=== PATIENT | male | born 1990 | race Caucasian/White ===

== ENCOUNTER 2022-11-20 19:35 | Emergency (ER) | payer OTHER, SELFPAY ==
[2022-11-20 19:46] VITALS: BP 115/71; PULSE 79; RESP 16; TEMP 36.5; O2SAT 97; BMI 27.2
--- NOTE | 2022-11-20 20:43 | DI.RAD.S_ITS ---
PROCEDURE: XR THORACIC SPINE 3V INDICATIONS: midline pain after lifting, felt pop TECHNIQUE: 3 views of the thoracic spine were acquired. COMPARISON: None. FINDINGS: Bones: No fractures or dislocations. No suspicious bony lesions. 12 pairs of ribs are noted, and appear intact where visualized. Soft tissues: No paravertebral stripe thickening. IMPRESSION: 1. No fracture or subluxation. Dictated by: Glenn Hay M.D. on 11/20/2022 at 21:29 Approved by: Glenn Hay M.D. on 11/20/2022 at 21:30
--- NOTE | 2022-11-20 20:44 | ED.BACK ---
HPI - Back Pain/Injury General Chief Complaint: Back Pain/Injury Stated Complaint: Back pain from lifting/strain Time Seen by Provider: 11/20/22 20:21 Source: patient History of Present Illness HPI Narrative: 32-year-old male nonsmoker with noncontributory medical history presents with significant other and a chief complaint of a sudden onset sharp and stabbing midline back pain for the past few days after bending over and lifting a heavy object. He states that his pain is worse when he moves and improves with rest. He denies any radiation of the pain and has no neurologic symptoms such as numbness, tingling or weakness. He denies fever or chills and does not use blood thinners. He does not have any complaint of footdrop. He has taken nothing to help with the pain. He denies any loss of control of bowel or bladder. Related Data Previous Rx's Medication Instructions Recorded ketorolac 10 mg tablet 10 mg PO Q6H PRN pain #14 tabs 11/20/22 Allergies Allergy/AdvReac Type Severity Reaction Status Date / Time No Known Drug Allergies Allergy Verified 11/20/22 19:49 Review of Systems Review of Systems Narrative: GENERAL: Denies chills, fatigue, malaise, fever, sweats. HEENT: Denies sinus pain, ear pain, sore throat, difficulty swallowing, dizziness. RESPIRATORY: Denies dyspnea, cough, wheezing, hemoptysis, sputum. CARDIOVASCULAR: Denies chest pain, palpitations, orthopnea, edema, GASTROINTESTINAL: Denies nausea, vomiting, abdominal pain, diarrhea, constipation, melena. : Denies dysuria, frequency, incontinence, hematuria, urinary retention. MUSCULOSKELETAL: See HPI SKIN: Denies rash, skin lesions, or other NEUROLOGIC: See HPI PSYCHIATRIC: No concerning psychosocial issues. 12 point review of systems is negative except for those stated above Patient History Social History Smoking Status: Never smoker Smoking Status: Never smoker Substance Use Type: does not use Exam Narrative Exam Narrative: GENERAL: [32] year old patient appears stated age. Well-developed patient, in mild distress. HEAD: Atraumatic. Normocephalic. EYES: Pupils equal round and reactive. Extraocular motions intact. No scleral icterus. No injection or drainage. ENT: Nose without bleeding, purulent drainage. Throat without erythema, tonsillar hypertrophy or exudate. Airway patent. NECK: Trachea midline. Non tender CARDIOVASCULAR: Regular rate and rhythm without murmurs, gallops, or rubs. RESPIRATORY: Clear to auscultation. Breath sounds equal bilaterally. No wheezes, rales, or rhonchi. GASTROINTESTINAL: Abdomen soft, non-tender, nondistended. EXTREMITIES: No edema or joint tenderness. BACK: Subtle midthoracic midline bony pain without crepitance or step-offs, no overlying erythema, warmth or induration, no fluctuance. No saddle anesthesia. No lower extremity numbness, tingling or weakness. NEURO: AOx3. SKIN: No rash or erythema of visible areas Initial Vital Signs Initial Vital Signs: Vital Signs Temperature 97.7 F 11/20/22 19:46 Pulse Rate 79 11/20/22 19:46 Respiratory Rate 16 11/20/22 19:46 Blood Pressure 115/71 11/20/22 19:46 Pulse Oximetry 97 11/20/22 19:46 Oxygen Delivery Method 11/20/22 19:46 Course Orders Ordered: ED Orders 11/20/22 20:43 XR thoracic spine 3V Stat Discontinued Medications Ibuprofen (Ibuprofen 400 Mg Tablet) 800 mg PO NOW ONE Stop: 11/20/22 20:44 Last Admin: 11/20/22 20:50 Dose: 800 mg Documented By: AP Vital Signs Vital signs: Vital Signs - 8 hr 11/20/22 19:46 11/20/22 21:50 Temperature 97.7 F Pulse Rate 79 72 Respiratory Rate 16 18 Blood Pressure 115/71 120/70 Pulse Oximetry 97 99 Oxygen Delivery Method Room Air Room Air MDM - Back Pain/Injury Imaging Data T Spine Xray: Radiologist's Impression: Close Thoracic Spine X-Ray (Signed) Glenn Hay - 11/20/22 Launch?[address] [address] XRay Report Signed Patient: Silvia Levy MR#: [id number] : 1990 Acct:[id number] Age/Sex: 32 / M Date of Service: 11/20/22 Loc: ED Accession Number: [id number] ?? Procedure: XR thoracic spine 3V Ordering Provider: Edmar Tabor D.O. PROCEDURE:? XR THORACIC SPINE 3V ? INDICATIONS:? midline pain after lifting, felt pop ? TECHNIQUE:? 3 views of the thoracic spine were acquired.? ? COMPARISON:? None. ? FINDINGS:? ? Bones:? No fractures or dislocations.? No suspicious bony lesions.? 12 pairs of ribs are noted, and appear intact where visualized.? ? Soft tissues:? No paravertebral stripe thickening.? ? ? IMPRESSION:? ? 1. No fracture or subluxation. ? ? Dictated by: Glenn Hay M.D. on 11/20/2022 at 21:29 ? ? Approved by: Glenn Hay M.D. on 11/20/2022 at 21:30 ? MDM Narrative Medical decision making narrative: [32M with low risk back pain] Multiple etiologies for patient's symptoms considered including, but not limited to: [ muscle spasm, fracture, inflammation, epidural abscess vs. other] Imaging reviewed: No fracture or acute process Patient's symptoms improved over duration of stay with above-stated therapies. Findings and discharge diagnosis discussed with patient/family followed by verbalization of understanding Return precautions discussed with patient/family whom verbalize understanding of diagnosis and plan Discharge Plan Departure Patient Disposition: Home Clinical Impression: Back pain Instructions: DI for Back Strain or Sprain Activity Restrictions/Additional Instructions: *You have been diagnosed with [back pain. Your history and physical exam are very reassuring and xray demonstrates no obvious abnormality.] *What to do: *Please continue to take your regular medications as directed. [ x] New medication prescriptions sent to your pharmacy: [ ] [ ] New medication written as a paper prescription [ ] No new medications given *Please follow up with your primary care provider in 2-3 days, call for an appointment. Let them know you were seen in the Emergency Department and that we ask that you be seen in follow up. We will electronically transmit a record of today's note if your PCP is in our system *If you do not have a primary care provider please contact the [facility] Resource line at [phone]. They will ask some questions about your medical history and help get you set up with a doctor in the community. *Return to Emergency Department if you should have any new, worsening or concerning symptoms, such as [fever greater than 101 F, shaking chills, worsening pain, persistent vomiting or other bothersome symptoms] Prescriptions: New ketorolac 10 mg tablet 10 mg PO Q6H PRN (Reason: pain) Qty: 14 0RF Referrals: ProviderKatherine [Primary Care Provider] - Stand Alone Forms: Patient Portal/API
[2022-11-20] MEDS: IBUPROFEN 400 MG TABLET 800 MG PO (20:50)
[2022-11-20 21:50] VITALS: BP 120/70; PULSE 72; RESP 18; O2SAT 99
== END 2022-11-20 21:51 | disposition home or self-care (01) ==
PROVIDERS: Emergency Provider Emergency Medicine
DX: M54.9 Dorsalgia, unspecified (principal)
CPT/HCPCS: 72072; 99283

== ENCOUNTER 2024-02-16 21:38 | Emergency (ER) | payer OTHER, SELFPAY ==
[2024-02-16 21:40] VITALS: BP 125/71; PULSE 78; RESP 16; TEMP 36.9; O2SAT 98; BMI 28.8
--- NOTE | 2024-02-16 22:04 | ED_ITS ---
HPI - Back Pain/Injury General Chief Complaint: Back Pain/Injury Stated Complaint: back pain, vomiting Time Seen by Provider: 02/16/24 21:39 Source: patient History of Present Illness HPI Narrative: 33-year-old male presents for general evaluation. He reports vomiting earlier today and since then has had body aches, lumbar back pain, and states that his skin feels painful. 500mg tylenol taken at home. Denies fevers, chills, recent illness Related Data Previous Rx's Medication Instructions Recorded ketorolac 10 mg tablet 10 mg PO Q6H PRN pain #14 tabs 11/20/22 Allergies Allergy/AdvReac Type Severity Reaction Status Date / Time No Known Drug Allergies Allergy Verified 02/16/24 21:40 Review of Systems Review of Systems Narrative: see HPI Patient History Social History Smoking Status: Never smoker Smoking Status: Never smoker Substance Use Type: does not use Exam Initial Vital Signs Initial Vital Signs: Vital Signs Temperature 98.4 F 02/16/24 21:40 Pulse Rate 78 02/16/24 21:40 Respiratory Rate 16 02/16/24 21:40 Blood Pressure 125/71 02/16/24 21:40 Pulse Oximetry 98 02/16/24 21:40 Oxygen Delivery Method Room Air 02/16/24 21:40 Const: Awake, alert, no acute distress, nontoxic appearing Cardiac: regular rate, regular rhythm RESP: unlabored, clear bilaterally, no wheezing GI: Soft, nontender, nondistended, no rebound, no guarding MSK: Atraumatic, full range of motion, pulses equal Skin: Warm, Dry, intact, no rashes Neuro: AO x3, CN II-XII grossly intact, moves all extremities Course Orders Ordered: ED Orders 02/16/24 22:10 UA Complete [Urinalysis and Microscopic] Stat 02/16/24 22:19 CBC Auto Diff [Complete Blood Count AUTO DIFF] Stat CMP [Comprehensive Metabolic Panel] Stat Covid-19 + FLU A/B + RSV - PCR Stat Discontinued Medications Ketorolac Tromethamine (Ketorolac 30 Mg/Ml Vial) 30 mg IM NOW ONE Stop: 02/16/24 22:04 Last Admin: 02/16/24 22:10 Dose: 30 mg Documented By: LOKESH Vital Signs Vital signs: Vital Signs - 8 hr 04/07/24 21:40 02/16/24 23:35 Temperature 98.4 F Pulse Rate 78 70 Respiratory Rate 16 24 Blood Pressure 125/71 118/71 Pulse Oximetry 98 95 Oxygen Delivery Method Room Air Room Air MDM - Back Pain/Injury Lab Data 02/16/24 22:19 02/16/24 22:19 Labs: Lab Results 02/16/24 02/16/24 Range/Units 22:10 22:19 WBC 6.6 (4.5-11.0) X10^3/uL RBC 4.80 (4.5-5.9) X10^6/uL Hgb 14.7 (13.5-17.5) g/dL Hct 43.7 (41-53) % MCV 91.1 (80-100) fL MCH 30.6 (26-34) PG MCHC 33.6 (30-36) % RDW 13.1 (11.6-14.8) % Plt Count 214 (150-400) X10^3/uL Neut % (Auto) 58.5 (50-75) % Lymph % (Auto) 31.7 (25-40) % [place] % (Auto) 7.8 (3-14) % Eos % (Auto) 1.4 L (2-4) % Baso % (Auto) 0.6 (0-2) % Neut # (Auto) 3900 (8491-0146) /uL Lymph # (Auto) 2100 (2889-2198) /uL [place] # (Auto) 500 (0-900) /uL Eos # (Auto) 100 (0-450) /uL Baso # (Auto) 0 (0-100) /uL Sodium 139 (137-145) mmol/L Potassium 3.9 (3.4-5.1) mmol/L Chloride 105 (98-107) mmol/L Carbon Dioxide 29 (22-32) mmol/L BUN 15 (9-20) mg/dL Creatinine 0.77 (0.66-1.25) mg/dL Estimated GFR > 60 (>60) mL/min BUN/Creatinine Ratio 19.5 (6-22) Glucose 81 (70-100) mg/dL Calcium 9.3 (8.4-10.2) mg/dL Total Bilirubin 0.6 (0.2-1.3) mg/dL AST 29 (17-59) IU/L ALT 20 (<50) IU/L Alkaline Phosphatase 59 (38-126) U/L Total Protein 8.0 (6.3-8.2) g/dL Albumin 4.5 (3.5-5.0) g/dL Globulin 3.5 (1.7-4.1) g/dL Albumin/Globulin Ratio 1.3 (1.0-2.8) Urine Color Yellow Urine Appearance Clear Urine pH 6.0 (4.5-8.0) Ur Specific [place] >=1.030 H (1.000-1.035) Urine Protein Negative (Negative) Urine Glucose (UA) Negative (Negative) g/dL Urine Ketones Negative (NEGATIVE) Urine Occult Blood Negative (Negative) Urine Nitrate Negative (Negative) Urine Bilirubin Negative (NEGATIVE) Urine Urobilinogen 0.2 (0.2) E.U./dL Ur Leukocyte Esterase Negative (NEGATIVE) Urine RBC None seen (0-5/HPF) Urine WBC None seen (0-5/HPF) Ur Squamous Epith Cells 0-1 /hpf (0-5/HPF) Urine Bacteria None seen (None) Ur Culture Indicated? Cult not indicated Vol Urine Centrifuged 10ml (spun) SARS-CoV-2 (PCR) Negative (Negative) Influenza A (RT-PCR) Flu a negative (NEGATIVE) Influenza B (RT-PCR) Flu b negative (NEGATIVE) RSV (PCR) Negative (Negative) MDM Narrative Medical decision making narrative: 33-year-old male presenting for general evaluation. Isolated episode of vomiting several hours ago, has generalized lumbar pain and the sensation that his skin is tight. Exam is unremarkable, laboratory work unremarkable. No explanation for patient's symptoms. Patient advised to take Tylenol and Motrin as needed and to follow up with his primary care physician. Discharge Plan Departure Patient Disposition: Home Clinical Impression: Lumbar back pain Instructions: DI for Low Back Pain Activity Restrictions/Additional Instructions: Your laboratory work and viral swab today were normal. I do not know the cause of your symptoms. Take Tylenol and Motrin as needed for pain. Follow a light diet for the next 2-3 days to prevent upsetting your stomach. Prescriptions: No Action ketorolac 10 mg tablet 10 mg PO Q6H PRN (Reason: pain) Qty: 14 0RF Referrals: Provider,Katherine GUZMAN [Primary Care Provider] - Stand Alone Forms: Patient Portal/API
[2024-02-16] MEDS: KETOROLAC 30 MG/ML VIAL IM (22:10)
[2024-02-16 22:19] LABS: Appearance Urine UA CLEAR; Bilirubin Urine UA NEGATIVE (NEGATIVE); Color Urine UA YELLOW; Glucose Urine UA NEGATIVE (Negative); Ketones Urine UA NEGATIVE (NEGATIVE); Leukocyte Esterase Urine UA NEGATIVE (NEGATIVE); Nitrite Urine UA NEGATIVE (Negative); Occult Blood Urine UA NEGATIVE (Negative); Protein Urine UA NEGATIVE (Negative); Specific Gravity Urine UA >=1.030 (1.000-1.035); Urobilinogen Urine UA 0.2 E.U./dL (0.2)
[2024-02-16 22:30] LABS: Add Manual Diff / Slide Review NO; Basophils Absolute Auto 0 /uL (0-100); Basophils Percent Auto 0.6 % (0-2); Eosinophils Absolute Auto 100 /uL (0-450); Eosinophils Percent Auto 1.4 % (2-4); Hematocrit 43.7 % (41-53); Hemoglobin 14.7 g/dL (13.5-17.5); Lymphocytes Absolute Auto 2100 /uL (1100-4500); Lymphocytes Percent Auto 31.7 % (25-40); Mean Corpuscular HGB Conc 33.6 % (30-36); Mean Corpuscular Hemoglobin 30.6 PG (26-34); Mean Corpuscular Volume 91.1 fL (80-100); Monocytes Absolute Auto 500 /uL (0-900); Monocytes Percent Auto 7.8 % (3-14); Neutrophils Absolute Auto 3900 /uL (1500-7000); Neutrophils Percent Auto 58.5 % (50-75); Platelet Count 214 X10^3/uL (150-400); Red Cell Distribution Width 13.1 % (11.6-14.8); White Blood Cell Count 6.6 X10^3/uL (4.5-11.0)
[2024-02-16 22:31] LABS: Bacteria Urine None Seen; Culture Indicated Urine Cult Not Indicated; RBC Urine None Seen (0-5/HPF); Squamous Epithelial Cell Urine 0-1 /HPF (0-5/HPF); Urine Volume 10mL (spun); WBC Urine None Seen (0-5/HPF)
[2024-02-16 22:40] LABS: Alanine Aminotransferase 20 IU/L (<50); Albumin 4.5 g/dL (3.5-5.0); Albumin Globulin Ratio 1.3 (1.0-2.8); Alkaline Phosphatase 59 U/L (38-126); Aspartate Aminotransferase 29 IU/L (17-59); BUN Creatinine Ratio 19.5 (6-22); Bilirubin Total 0.6 mg/dL (0.2-1.3); Blood Urea Nitrogen 15 mg/dL (9-20); Calcium 9.3 mg/dL (8.4-10.2); Carbon Dioxide 29 mmol/L (22-32); Chloride 105 mmol/L (98-107); Estimated Glomerular Filt Rate > 60 mL/min (>60); Globulin 3.5 g/dL (1.7-4.1); Glucose 81 mg/dL (70-100); HEMOLYSIS 25 (0-50); Potassium 3.9 mmol/L (3.4-5.1); Sodium 139 mmol/L (137-145)
[2024-02-16 23:12] LABS: Influenza A - CEPHEID Flu A NEGATIVE (NEGATIVE); Influenza B - CEPHEID Flu B NEGATIVE (NEGATIVE); Respiratory Syncytial Virus Negative (Negative)
[2024-02-16 23:15] LABS: COVID-19 CEPHEID 4-PLEX PCR Negative (Negative)
[2024-02-16 23:35] VITALS: BP 118/71; PULSE 70; RESP 24; O2SAT 95
== END 2024-02-16 23:36 | disposition home or self-care (01) ==
PROVIDERS: Emergency Provider Emergency Medicine
DX: M54.50 Low back pain, unspecified (principal); R11.10 Vomiting, unspecified; Z20.822 Contact with and (suspected) exposure to COVID-19
CPT/HCPCS: 0241U; 36415; 80053; 81001; 85025; 96372; 99283; J1885

== ENCOUNTER 2024-09-30 10:21 | Emergency (ER) | payer OTHER, SELFPAY ==
[2024-09-30 10:28] VITALS: BP 135/76; PULSE 82; RESP 18; TEMP 36.5; O2SAT 99; BMI 28.8
--- NOTE | 2024-09-30 11:58 | ED.HA ---
HPI - Headache <Cinthya Cheung PA-C - Last Filed: 09/30/24 13:36> General Chief Complaint: Headache Stated Complaint: Headaches Time Seen by Provider: 09/30/24 11:58 Mode of arrival: Ambulatory History of Present Illness HPI Narrative: Mr. Levy is a pleasant 34-year-old male who was otherwise healthy that presents to the emergency room for headache. Patient reports he 1st developed a left-sided headache 1 month ago that only was present at night. Patient reports that he would wake up around 2:00 a.m. with a headache behind his left eye, would take Tylenol, and headache would resolve when he would go back to sleep. States that this happened almost every day for a month however about 1 week ago it stopped. Three days ago however, the patient developed a bilateral frontal headache that has been constant. Patient denies any sudden onset of the headache or trauma to the head. Describes headache as dull but constant pressure. Denies visual disturbance, dizziness, fevers, chills, neck pain. Prior to 1 month ago, the patient never developed headaches. The headaches do resolve with Tylenol however they returned about 2 hours later. He last took Tylenol at 6:00 a.m. and the headache returned at 8:00 a.m.. Related Data Previous Rx's Medication Instructions Recorded ketorolac 10 mg tablet 10 mg PO Q6H PRN pain #14 tabs 11/20/22 Allergies Allergy/AdvReac Type Severity Reaction Status Date / Time No Known Drug Allergies Allergy Verified 02/16/24 21:40 Review of Systems <Cinthya Cheung PA-C - Last Filed: 09/30/24 13:36> Review of Systems ROS Unobtainable: All systems reviewed & are unremarkable except as noted in HPI and below Patient History <Cinthya Cheung PA-C - Last Filed: 09/30/24 13:36> Social History Smoking Status: Never smoker Smoking Status: Never smoker alcohol intake frequency: 0-2 drinks per day Substance Use Type: does not use Exam <Cinthya Cheung PA-C - Last Filed: 09/30/24 13:36> Narrative Exam Narrative: GENERAL: 34 year old patient appears stated age. Well-developed patient, in no acute distress. HEAD: Atraumatic. Normocephalic. EYES: PERRL. Extraocular motions intact. No scleral icterus. No injection or drainage. ENT: Nose without bleeding, purulent drainage. Ears without hemotympanum. Throat without erythema, tonsillar hypertrophy or exudate. Airway patent. NECK: Trachea midline. Cervical ROM intact. CARDIOVASCULAR: Regular rate and rhythm. RESPIRATORY: ?Nonlabored respirations. ?Speaking in clear, full sentences. ?Clear to auscultation. Breath sounds equal bilaterally. No wheezes, rales, or rhonchi. ? GASTROINTESTINAL: Abdomen soft, non-tender, nondistended. EXTREMITIES: No edema or joint tenderness. BACK: Nontender without deformity or crepitance. No flank tenderness. NEURO: AOx3. ?Clear speech. ?Moves all 4 extremities appropriately. Steady gait. No facial asymmetry. FNF normal. SKIN: No rash or erythema of visible areas Initial Vital Signs Initial Vital Signs: Vital Signs Temperature 97.7 F 09/30/24 10:28 Pulse Rate 82 09/30/24 10:28 Respiratory Rate 18 09/30/24 10:28 Blood Pressure 135/76 09/30/24 10:28 Pulse Oximetry 99 09/30/24 10:28 Oxygen Delivery Method Room Air 09/30/24 10:28 <Elmo Esparza MD - Last Filed: 10/04/24 14:56> Initial Vital Signs Initial Vital Signs: Vital Signs Temperature 97.7 F 09/30/24 10:28 Pulse Rate 82 09/30/24 10:28 Respiratory Rate 18 09/30/24 10:28 Blood Pressure 135/76 09/30/24 10:28 Pulse Oximetry 99 09/30/24 10:28 Oxygen Delivery Method Room Air 09/30/24 10:28 Course <Cinthya Cheung PA-C - Last Filed: 09/30/24 13:36> Orders Ordered: Discontinued Medications Acetaminophen (Acetaminophen 325 Mg Tablet) 975 mg PO NOW ONE Stop: 09/30/24 12:09 Last Admin: 09/30/24 12:13 Dose: 975 mg Documented By: SCOT Ibuprofen (Ibuprofen 400 Mg Tablet) 200 mg PO NOW ONE Stop: 09/30/24 12:09 Last Admin: 09/30/24 12:13 Dose: 200 mg Documented By: SCOT Ibuprofen (Ibuprofen 400 Mg Tablet) 400 mg PO NOW ONE Stop: 09/30/24 12:09 Last Admin: 09/30/24 12:14 Dose: 400 mg Documented By: MPO Vital Signs Vital signs: Vital Signs - 8 hr 09/30/24 10:28 Temperature 97.7 F Pulse Rate 82 Respiratory Rate 18 Blood Pressure 135/76 Pulse Oximetry 99 Oxygen Delivery Method Room Air <Elmo Esparza MD - Last Filed: 10/04/24 14:56> Orders Ordered: Discontinued Medications Acetaminophen (Acetaminophen 325 Mg Tablet) 975 mg PO NOW ONE Stop: 09/30/24 12:09 Last Admin: 09/30/24 12:13 Dose: 975 mg Documented By: MPO Ibuprofen (Ibuprofen 400 Mg Tablet) 200 mg PO NOW ONE Stop: 09/30/24 12:09 Last Admin: 09/30/24 12:13 Dose: 200 mg Documented By: MPO Ibuprofen (Ibuprofen 400 Mg Tablet) 400 mg PO NOW ONE Stop: 09/30/24 12:09 Last Admin: 09/30/24 12:14 Dose: 400 mg Documented By: MPO Vital Signs Vital signs: Vital Signs - 8 hr 09/30/24 10:28 Temperature 97.7 F Pulse Rate 82 Respiratory Rate 18 Blood Pressure 135/76 Pulse Oximetry 99 Oxygen Delivery Method Room Air MDM - Headache <Cinthya Cheung PA-C - Last Filed: 09/30/24 13:36> Imaging Data CT scan - head: Radiologist's Impression: PROCEDURE: CT HEAD/BRAIN WO CON INDICATIONS: L sided RAMIREZ x 1 month, BL frontal RAMIREZ x 3 days, no RAMIREZ hx TECHNIQUE: Noncontrast 4.5 mm thick angled axial sections acquired from the foramen magnum to the vertex, with coronal and sagittal reformats. For radiation dose reduction, the following was used: automated exposure control, adjustment of mA and/or kV according to patient size. COMPARISON: None. FINDINGS: Image quality: Diagnostic. CSF spaces: Basal cisterns are patent. No extra-axial fluid collections. Ventricles are normal in size and shape. Brain: No midline shift. No intracranial masses or hemorrhage. [place]-white matter interface is normal. Skull and face: Calvarium and visualized facial bones are intact, without suspicious lesions. Sinuses: Visualized sinuses and mastoids are clear. IMPRESSION: No acute intracranial pathology. 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 At this time the patient has a bilateral frontal headache. No sudden onset, no trauma, no visual disturbance or dizziness, no neck pain, no fevers. Differential diagnosis includes but is not limited to tension headache, cluster headache, migraine headache, intracranial mass, sinusitis, sleep apnea, etc. On exam patient is in no acute distress, nontoxic-appearing, all vital signs within normal limits. No focal neurologic deficits. After shared decision-making with the patient, we will proceed with head CT given patient has no history of headaches prior to the last month. We will treat pain with Tylenol and ibuprofen. Head CT negative. Patient is requesting discharge. He has had improvement with his headache after Tylenol and ibuprofen. Recommended rest, decrease screen time, increase hydration, ibuprofen/Tylenol if needed for pain and follow up with his PCP tomorrow which is already scheduled. Discussed strict ER return precautions and signs and symptoms to look out for. All questions answered, patient stable for discharge. Discharge Plan Departure Patient Disposition: Home Clinical Impression: Headache Instructions: DI for Headache Activity Restrictions/Additional Instructions: You may take 1000 mg of Tylenol every 8 hours and ibuprofen 600 mg every 6 hours if needed for headache. Please rest, decrease screen time, increase hydration, and follow up with Medical tomorrow as discussed. Please follow up with your primary care doctor within the next 2-3 days. Return to the emergency department for any new or worsening symptoms, or any other concerns. Thank you for letting me participate in your care, Cinthya Cheung PA-C Prescriptions: No Action ketorolac 10 mg tablet 10 mg PO Q6H PRN (Reason: pain) Qty: 14 0RF Referrals: Provider,Katherine GUZMAN [Primary Care Provider] - Stand Alone Forms: Patient Portal/API/Survey, Work Release Note ED Sign-out <Elmo Esparza MD - Last Filed: 10/04/24 14:56> Cosign ED Attending Cosignature Attestation: I was immediately available in the department for consultation. ?This documentation has been reviewed and I agree with assessment and plan. Supervised by Elmo Esparza MD
--- NOTE | 2024-09-30 12:08 | DI.CT.S_ITS ---
PROCEDURE: CT HEAD/BRAIN WO CON INDICATIONS: L sided RAMIREZ x 1 month, BL frontal RAMIREZ x 3 days, no RAMIREZ hx TECHNIQUE: Noncontrast 4.5 mm thick angled axial sections acquired from the foramen magnum to the vertex, with coronal and sagittal reformats. For radiation dose reduction, the following was used: automated exposure control, adjustment of mA and/or kV according to patient size. COMPARISON: None. FINDINGS: Image quality: Diagnostic. CSF spaces: Basal cisterns are patent. No extra-axial fluid collections. Ventricles are normal in size and shape. Brain: No midline shift. No intracranial masses or hemorrhage. [place]-white matter interface is normal. Skull and face: Calvarium and visualized facial bones are intact, without suspicious lesions. Sinuses: Visualized sinuses and mastoids are clear. IMPRESSION: No acute intracranial pathology. Dictated by: Angel Tinsley M.D. on 09/30/2024 at 12:50 Approved by: Angel Tinsley M.D. on 09/30/2024 at 12:51
[2024-09-30] MEDS: IBUPROFEN 400 MG TABLET 200 MG PO (12:13)
[2024-09-30] MEDS: ACETAMINOPHEN 325 MG TABLET 975 MG PO (12:13)
[2024-09-30] MEDS: IBUPROFEN 400 MG TABLET PO (12:14)
[2024-09-30 13:46] VITALS: BP 140/72; PULSE 81; RESP 20; O2SAT 99
== END 2024-09-30 13:47 | disposition home or self-care (01) ==
PROVIDERS: Emergency Provider Physician Assistant
DX: R51.9 Headache, unspecified (principal)
CPT/HCPCS: 70450; 99283; 99284

== ENCOUNTER 2024-10-01 22:07 | Emergency (ER) | payer OTHER, SELFPAY ==
[2024-10-01 22:13] VITALS: BP 136/77; PULSE 92; RESP 16; TEMP 36.7; O2SAT 96; BMI 28.0
--- NOTE | 2024-10-01 22:23 | ED.HA ---
HPI - Headache General Chief Complaint: Headache Stated Complaint: headaches and bodyaches Time Seen by Provider: 10/01/24 22:12 Mode of arrival: Ambulatory History of Present Illness HPI Narrative: 34-year-old male presents for 4 days of persistent headache. Patient seen yesterday for same. He underwent negative CT imaging at that time. Per ED note patient's headache was controlled with Tylenol and ibuprofen and he was discharged with supportive care measures. Patient states that the headache returned and it was not relieved with the ibuprofen that he took prior to arrival. Also reporting generalized body aches. Related Data Previous Rx's Medication Instructions Recorded ketorolac 10 mg tablet 10 mg PO Q6H PRN pain #14 tabs 11/20/22 Allergies Allergy/AdvReac Type Severity Reaction Status Date / Time No Known Drug Allergies Allergy Verified 02/16/24 21:40 Patient History Social History Smoking Status: Never smoker Smoking Status: Never smoker alcohol intake frequency: 0-2 drinks per day Substance Use Type: does not use Exam Initial Vital Signs Initial Vital Signs: Vital Signs Temperature 98.1 F 10/01/24 22:13 Pulse Rate 92 H 10/01/24 22:13 Respiratory Rate 16 10/01/24 22:13 Blood Pressure 136/77 10/01/24 22:13 Pulse Oximetry 96 10/01/24 22:13 Oxygen Delivery Method Room Air 10/01/24 22:13 Course Orders Ordered: ED Orders 10/01/24 22:30 Covid-19 + FLU A/B + RSV - PCR Stat Discontinued Medications Diphenhydramine HCl (Diphenhydramine 50 Mg/Ml Vial) 50 mg IV NOW ONE Stop: 10/01/24 22:19 Last Admin: 10/01/24 22:35 Dose: 50 mg Documented By: GLORY Sodium Chloride (Normal Saline 0.9%) 1,000 mls @ 1,000 mls/hr IV BOLUS ONE Stop: 10/01/24 23:17 Last Infusion: 10/01/24 23:32 Dose: Infused Documented By: Admin: 10/01/24 22:33 Dose: 1,000 mls/hr Documented By: GLORY Ketorolac Tromethamine (Ketorolac 30 Mg/Ml Vial) 15 mg IV NOW ONE Stop: 10/01/24 22:19 Last Admin: 10/01/24 22:36 Dose: 15 mg Documented By: GLORY Metoclopramide HCl (Metoclopramide 10 Mg/2 Ml Inj) 10 mg IV NOW ONE Stop: 10/01/24 22:19 Last Admin: 10/01/24 22:36 Dose: 10 mg Documented By: GLORY Vital Signs Vital signs: Vital Signs - 8 hr 10/01/24 22:13 10/01/24 22:32 10/01/24 23:00 Temperature 98.1 F Pulse Rate 92 H 82 Respiratory Rate 16 Blood Pressure 136/77 111/79 Pulse Oximetry 96 96 Oxygen Delivery Method Room Air 10/01/24 23:00 Temperature Pulse Rate 72 Respiratory Rate Blood Pressure Pulse Oximetry 95 Oxygen Delivery Method Room Air MDM - Headache Lab Data Labs: Lab Results 10/01/24 Range/Units 22:30 SARS-CoV-2 (PCR) Negative (Negative) Influenza A (RT-PCR) Flu a negative (NEGATIVE) Influenza B (RT-PCR) Flu b negative (NEGATIVE) RSV (PCR) Negative (Negative) MDM Narrative Medical decision making narrative: Four days of persistent headache. Negative CT imaging yesterday. Patient in no acute distress, neurologically intact, no red flag signs at this time. Headache controlled with IV headache cocktail. Flu/Covid/RSV swabs negative. patient stated that he only took 200 mg of ibuprofen prior to arrival. He was counseled on appropriate Tylenol and ibuprofen doses at home. He was advised that if he continues to experience headaches then he should follow up with his primary care doctor on the [facility] for further investigation of his headaches. Note for work provided. Discharge Plan Departure Patient Disposition: Home Clinical Impression: Headache Instructions: DI for Headache Activity Restrictions/Additional Instructions: Your head CT from yesterday was normal and your headache was improved with a headache cocktail here. At home you may take 400 mg of ibuprofen and 1000 mg of Tylenol alternating every 6-8 hours as needed for pain. Do not take anymore than 4000 mg of Tylenol daily. Make sure that you get plenty of rest and drink plenty of fluids. Avoid excessive screen time. If you continue to experience recurrent headaches I would talk to your primary care Doctor about additional medications that can be started. Prescriptions: No Action ketorolac 10 mg tablet 10 mg PO Q6H PRN (Reason: pain) Qty: 14 0RF Referrals: ProviderKatherine [Primary Care Provider] - Stand Alone Forms: Patient Portal/API/Survey, Work Release Note
[2024-10-01 22:32] VITALS: PULSE 82; O2SAT 96
[2024-10-01] MEDS: SODIUM CHLORIDE 0.9% 1,000 ML 1000 ML IV (22:33)
[2024-10-01] MEDS: diphenhydrAMINE 50 MG/ML VIAL IV (22:35)
[2024-10-01] MEDS: KETOROLAC 30 MG/ML VIAL 15 MG IV (22:36)
[2024-10-01] MEDS: METOCLOPRAMIDE 10 MG/2 ML INJ IV (22:36)
[2024-10-01 23:00] VITALS: BP 111/79; PULSE 72; O2SAT 95
[2024-10-01 23:23] LABS: Influenza A - CEPHEID Flu A NEGATIVE (NEGATIVE); Influenza B - CEPHEID Flu B NEGATIVE (NEGATIVE); Respiratory Syncytial Virus Negative (Negative)
[2024-10-01 23:27] LABS: COVID-19 CEPHEID 4-PLEX PCR Negative (Negative)
== END 2024-10-01 23:34 | disposition home or self-care (01) ==
PROVIDERS: Emergency Provider Emergency Medicine
DX: R51.9 Headache, unspecified (principal)
CPT/HCPCS: 0241U; 36415; 96361; 96374; 96375; 99284; J1200; J1885; J2765